=== PATIENT | female | born 1955 | race Caucasian/White ===

== ENCOUNTER → 2016-11-08 | Outpatient (CLI) | payer OTHER ==
[~2016-11-08] MED LIST: ANAPROX DS550 MG PO; ASPIR LOW81 MG PO; CLOPIDOGREL75 MG PO; GLYBURIDE5 MG PO; KLOR-CON 88 MEQ PO; LISINOPRIL10 MG PO; Meclizine25 MG PO
== END | disposition home or self-care (01) ==
LOC: US 13:30
DX: I73.9 Peripheral vascular disease, unspecified (principal)

== ENCOUNTER → 2017-04-18 | Outpatient (CLI) | payer OTHER | END | disposition home or self-care (01) | LOC: RAD 14:07 | DX: J90 Pleural effusion, not elsewhere classified (principal); I50.22 Chronic systolic (congestive) heart failure; I73.9 Peripheral vascular disease, unspecified; I42.9 Cardiomyopathy, unspecified ==

== ENCOUNTER → 2017-05-20 | Outpatient (CLI) | payer OTHER | LOC: WOUNDCARE 02:50 | DX: E11.621 Type 2 diabetes mellitus with foot ulcer (principal); L97.521 Non-pressure chronic ulcer of other part of left foot limited to breakdown of skin; I25.10 Atherosclerotic heart disease of native coronary artery without angina pectoris; I10 Essential (primary) hypertension; Z79.01 Long term (current) use of anticoagulants ==

== ENCOUNTER → 2018-05-03 | Outpatient (CLI) | payer OTHER | END | disposition home or self-care (01) | LOC: US 13:09 | DX: I73.9 Peripheral vascular disease, unspecified (principal) ==

== ENCOUNTER → 2018-05-12 | Outpatient (CLI) | payer OTHER | LOC: WOUNDCARE 02:55 | DX: E11.621 Type 2 diabetes mellitus with foot ulcer (principal); L97.521 Non-pressure chronic ulcer of other part of left foot limited to breakdown of skin; E11.51 Type 2 diabetes mellitus with diabetic peripheral angiopathy without gangrene; E11.40 Type 2 diabetes mellitus with diabetic neuropathy, unspecified; I10 Essential (primary) hypertension; I48.91 Unspecified atrial fibrillation; F17.210 Nicotine dependence, cigarettes, uncomplicated ==

== ENCOUNTER → 2018-05-19 | Outpatient (CLI) | payer OTHER | END | disposition home or self-care (01) | LOC: WOUNDCARE 04:25 | DX: E11.621 Type 2 diabetes mellitus with foot ulcer (principal); L97.521 Non-pressure chronic ulcer of other part of left foot limited to breakdown of skin; E11.51 Type 2 diabetes mellitus with diabetic peripheral angiopathy without gangrene; I10 Essential (primary) hypertension; E11.40 Type 2 diabetes mellitus with diabetic neuropathy, unspecified; I48.91 Unspecified atrial fibrillation; F17.210 Nicotine dependence, cigarettes, uncomplicated ==

== ENCOUNTER → 2019-03-07 | Outpatient (CLI) | payer OTHER | END | disposition home or self-care (01) | LOC: WOUNDCARE 10:13 → EDSTATUS 03-08 15:59 | DX: E11.621 Type 2 diabetes mellitus with foot ulcer (principal); L97.522 Non-pressure chronic ulcer of other part of left foot with fat layer exposed; E11.51 Type 2 diabetes mellitus with diabetic peripheral angiopathy without gangrene; E11.40 Type 2 diabetes mellitus with diabetic neuropathy, unspecified; I48.91 Unspecified atrial fibrillation; I10 Essential (primary) hypertension; F17.210 Nicotine dependence, cigarettes, uncomplicated; Z79.4 Long term (current) use of insulin; Z79.82 Long term (current) use of aspirin ==

== ENCOUNTER → 2019-03-14 | Outpatient (CLI) | payer MEDICARE | END | disposition home or self-care (01) | LOC: WOUNDCARE 01:20 | DX: E11.621 Type 2 diabetes mellitus with foot ulcer (principal); L97.522 Non-pressure chronic ulcer of other part of left foot with fat layer exposed; E11.51 Type 2 diabetes mellitus with diabetic peripheral angiopathy without gangrene; E11.40 Type 2 diabetes mellitus with diabetic neuropathy, unspecified; I10 Essential (primary) hypertension; I48.91 Unspecified atrial fibrillation; F17.210 Nicotine dependence, cigarettes, uncomplicated ==

== ENCOUNTER → 2019-03-30 | Outpatient (CLI) | payer MEDICARE | END | disposition home or self-care (01) | LOC: WOUNDCARE 10:22 | DX: E11.621 Type 2 diabetes mellitus with foot ulcer (principal); L97.522 Non-pressure chronic ulcer of other part of left foot with fat layer exposed; E11.51 Type 2 diabetes mellitus with diabetic peripheral angiopathy without gangrene; E11.59 Type 2 diabetes mellitus with other circulatory complications; I10 Essential (primary) hypertension; E11.40 Type 2 diabetes mellitus with diabetic neuropathy, unspecified; I48.91 Unspecified atrial fibrillation; F17.210 Nicotine dependence, cigarettes, uncomplicated ==

== ENCOUNTER 2020-09-26 15:58 | Inpatient (IN) | payer MEDICARE ==
[~2020-09-26] VITALS: Ht 172.7 cm; Wt 82.8 kg
[2020-09-26] VITALS (17 sets, daily range): BP systolic 70–113; BP diastolic 30–65
[2020-09-26 16:23] LABS: BASO % 0.2 % (0.0-1.0); EOS # 0.1 10*3/uL (0.0-0.4); EOS % 1.6 % (1.0-4.0); HEMATOCRIT 43.3 % (37.0-47.0); LYMPH # 0.7 10*3/uL (1.3-4.4); LYMPH % 17.4 % (27.0-41.0); MEAN CELL VOLUME 103.3 fl (81.0-99.0); MEAN CORPUSCULAR HGB 32.7 pg (27.0-31.0); MEAN CORPUSCULAR HGB CONC 31.6 g/dl (33.0-37.0); MEAN PLATELET VOLUME 10.5 fl (9.6-12.3); MONO # 0.1 10*3/uL (0.1-1.0); MONO % 1.4 % (3.0-9.0); NEUT # 3.3 10*3/uL (2.3-7.9); PLATELET COUNT AUTOMATED 148 10*3/uL (130-400); RED BLOOD COUNT 4.19 10*6/uL (4.10-5.10); RED CELL DISTRI WIDTH 15.9 % (0-14.5); WHITE BLOOD COUNT 4.3 10*3/uL (4.8-10.8)
[2020-09-26 16:41] LABS: ALBUMIN 2.6 gm/dl (3.1-4.5); CREATININE 4.68 mg/dL (0.55-1.02); POTASSIUM 4.7 mmol/L (3.5-5.1); TOTAL PROTEIN 6.7 gm/dL (6.4-8.2)
--- NOTE | 2020-09-26 16:42 | NUR ---
PT. RESTING IN BED, APPEARS TO BE IN NO DISTRESS AT THIS TIME. RR EASY AND NON-LABORED. CALL LIGHT WITHIN REACH. WILL CONTINUE TO MONITOR.
--- NOTE | 2020-09-26 17:33 | NUR ---
CLEANED PT. UP AND APPLIED NEW BRIEF AND PADS. PT. HAD LARGE BOWEL MOVEMENT, DIARRHEA.
--- NOTE | 2020-09-26 18:30 | NUR ---
INSERTED FMS INTO RECTUM TO MANAGE STOOL CONTENTS.
[2020-09-27] VITALS (7 sets, daily range): BP systolic 104–126; BP diastolic 40–80
--- NOTE | 2020-09-27 00:50 | NUR ---
A 65, admitted to 5E, under the services of FRED Tran DO with a diagnosis of HYPOTENSION. Chief complaint is LETHARGY AND WEAKNESS VOMITING. Patient arrived via stretcher from ER. Monitor applied. Initial assessment completed. Vital signs taken and recorded. FRED TRAN DO notified of admission to the unit. Orders received. See assessment for past medical history, medications and allergies. Patient and/or family oriented to unit. [facility] visitation policy reviewed. Clothing/patient valuable form completed. TADEO DE SOUZA
[2020-09-27] MEDS ORDERED: PHENERGAN25 M3 PO (01:11)
[2020-09-27] MEDS ORDERED: ELIQUIS5 M1 PO (01:11)
[2020-09-27] MEDS ORDERED: FUROSEMIDE80 MG PO (01:12)
[2020-09-27 03:58] LABS: HEMATOCRIT 36.9 % (37.0-47.0); MEAN CELL VOLUME 105.1 fl (81.0-99.0); MEAN CORPUSCULAR HGB 33.3 pg (27.0-31.0); MEAN CORPUSCULAR HGB CONC 31.7 g/dl (33.0-37.0); MEAN PLATELET VOLUME 10.6 fl (9.6-12.3); PLATELET COUNT AUTOMATED 128 10*3/uL (130-400); RED BLOOD COUNT 3.51 10*6/uL (4.10-5.10); WHITE BLOOD COUNT 16.2 10*3/uL (4.8-10.8)
[2020-09-27 04:13] LABS: CREATININE 4.54 mg/dL (0.55-1.02); POTASSIUM 4.5 mmol/L (3.5-5.1)
[2020-09-27 04:30] LABS: PLATELET SUFFICIENCY LOW (NORMAL); TOTAL CELLS COUNTED 100 #CELLS
[2020-09-27 04:31] LABS: BURR CELLS FEW
[2020-09-27 04:32] LABS: SCHISTOCYTES FEW
--- NOTE | 2020-09-27 06:43 | NUR ---
MESSAGE LEFT WITH [facility].
--- NOTE | 2020-09-27 06:48 | NUR ---
DR. RODRIGUEZ RETURNED CALL.
[2020-09-27 07:44] LABS: BILIRUBIN Negative (Negative); BLOOD 3+ (Negative); CLARITY Turbid (Clear); COLOR Dark Yellow (Yellow); GLUCOSE Negative (Negative); KETONE Trace (Negative); LEUKO ESTERASE 3+ (Negative); NITRITE Negative (Negative)
[2020-09-27 07:55] LABS: BACTERIA 4+; RBC TNTC rbc/hpf (0-2)
[2020-09-27 07:56] LABS: WBC TNTC wbc/hpf (0-5)
[2020-09-27 10:44] LABS: VITAMIN D, 25-HYDROXY 137.2 ng/mL (30-100)
--- NOTE | 2020-09-27 15:43 | NUR ---
THE PATIENT RETURNED FROM DIALYSIS. nO ACUTE DISTRESS WAS NOTED. pHYSICAL ASSESSMENT WAS COMPLTETED. BILATERAL LOWER EXTREMITIES WERE +2 PITTIMG EDEMA. THE PATIENT DENIED ANY LOCALIZED CALF PAIN BILATERALLY. TYLENOL WAS GIVEN FOR HEADACHE AND THE PATIENT VERBALLY REASSESS HER PAIN 3OR 4. SHE STATED THAT TYLENOL WAS EFFECTIVE. WILL CONTINUE TO SANTO CALL LIGHT IN REACH.
--- NOTE | 2020-09-27 18:19 | NUR ---
tHE PATIENT WAS COVERED WITH INSULIN OER SLIDING SCALE. [facility] PRINT[facility] [employer] SHANAE VERIFIED THE INSULIN THAT WAS ADMINISTERED
--- NOTE | 2020-09-27 18:32 | NUR ---
DR. WALTER WAS NOTIFIED AT 1615PM REGARDING THE PATIENTS VITALS SIGNS WHICH INCLUDED THE BP OF 90/44. NO ACTION WAS TAKEN. PATIENT DENIES DIZZINESS. WILL;CONTINUE TO MONITOR.
[2020-09-28] VITALS: BP 121/42
[2020-09-28 04:00] VITALS: BP 118/40
[2020-09-28 06:31] LABS: BASO % 0.2 % (0.0-1.0); EOS # 0.1 10*3/uL (0.0-0.4); EOS % 0.7 % (1.0-4.0); HEMATOCRIT 30.4 % (37.0-47.0); LYMPH # 0.7 10*3/uL (1.3-4.4); LYMPH % 6.4 % (27.0-41.0); MEAN CELL VOLUME 104.8 fl (81.0-99.0); MEAN CORPUSCULAR HGB 32.4 pg (27.0-31.0); MEAN CORPUSCULAR HGB CONC 30.9 g/dl (33.0-37.0); MEAN PLATELET VOLUME 9.9 fl (9.6-12.3); MONO # 0.5 10*3/uL (0.1-1.0); MONO % 4.8 % (3.0-9.0); NEUT # 9.9 10*3/uL (2.3-7.9); NEUT % 87.2 % (47.0-73.0); PLATELET COUNT AUTOMATED 129 10*3/uL (130-400); WHITE BLOOD COUNT 11.4 10*3/uL (4.8-10.8)
[2020-09-28 06:51] LABS: ALBUMIN 2.4 gm/dl (3.1-4.5); CREATININE 3.55 mg/dL (0.55-1.02); POTASSIUM 4.1 mmol/L (3.5-5.1); TOTAL PROTEIN 6.1 gm/dL (6.4-8.2)
[2020-09-28 08:00] VITALS: BP 119/50
--- NOTE | 2020-09-28 10:59 | NUR ---
Camera Person in to talk to patient. Patient states lives at HOME with AND DAUGHTER. There are 0 steps in the home. Physician: ELVIRA OTTO Pharmacy: [facility] Home health services: NONE Patient's level of ADLs: INDEPENDENT Patient has working utilities: ALL WORKING DME: HAS HOME OXYGEN THROUGH [employer]. WEARS 4 LITERS AT NIGHT Follow-up physician's appointment after d/c: [facility] OFFICE Does patient want to access PORTAL?: NO Discharge plan Discharge plan discussed with patient. She lives at home with and daughter and is independent with care/ambulation. She says she has been to snf in the past and has visiting nurses and therapy through home health before and none of them ever helped. she does not want to go to snf and is refusing home health at this time. Patient will discharge to home no needs. JE FUENTES
[2020-09-28 12:00] VITALS: BP 118/42
[2020-09-28 16:00] VITALS: BP 126/50
--- NOTE | 2020-09-28 18:34 | NUR ---
THE PATIENT COMPLAINS OF GENERAL ABDOMINAL PAIN. SHE DESCRIBED IT ACHING AND STATED THAT HER PAIN IS RELIEVES WHEN SHE SITS UP. DR. WALTER WAS NOTIFIED AND STATED THAT NO PHYSICIANS WERE IN HOUSE TO EVALUSTE HER. THE PATIENT WAS MEDICATED WITH TYLENOL AND NOTIFIED THAT THE DOCTOR WILL SEE HER TOMORROW. SAFETY MAINTAINED WILL CONTINUE TO MONITOR.
[2020-09-28 20:00] VITALS: BP 137/53
[2020-09-29] VITALS: BP 96/59
[2020-09-29 06:28] LABS: BASO % 0.2 % (0.0-1.0); EOS # 0.2 10*3/uL (0.0-0.4); EOS % 1.9 % (1.0-4.0); HEMATOCRIT 29.4 % (37.0-47.0); LYMPH # 0.9 10*3/uL (1.3-4.4); LYMPH % 10.2 % (27.0-41.0); MEAN CELL VOLUME 106.5 fl (81.0-99.0); MEAN CORPUSCULAR HGB 33.3 pg (27.0-31.0); MEAN CORPUSCULAR HGB CONC 31.3 g/dl (33.0-37.0); MEAN PLATELET VOLUME 10.4 fl (9.6-12.3); MONO # 0.5 10*3/uL (0.1-1.0); MONO % 5.9 % (3.0-9.0); NEUT # 6.9 10*3/uL (2.3-7.9); NEUT % 80.6 % (47.0-73.0); PLATELET COUNT AUTOMATED 129 10*3/uL (130-400); RED BLOOD COUNT 2.76 10*6/uL (4.10-5.10); RED CELL DISTRI WIDTH 15.9 % (0-14.5); WHITE BLOOD COUNT 8.6 10*3/uL (4.8-10.8)
[2020-09-29 06:44] LABS: ALBUMIN 2.4 gm/dl (3.1-4.5); CREATININE 4.44 mg/dL (0.55-1.02); POTASSIUM 4.1 mmol/L (3.5-5.1); TOTAL PROTEIN 6.4 gm/dL (6.4-8.2)
[2020-09-29 08:00] VITALS: BP 125/40
[2020-09-29 12:00] VITALS: BP 133/46
--- NOTE | 2020-09-29 12:15 | NUR ---
case management was asked to contact dialysis clinic to check if they could administer merepenem for 4 doses. called [facility], spoke to Taiwo, he stated the only antibiotics they are able to administer in dialysis is vancomycin, ancef, fortaz and gentamycin. notified hospitalist nurse director
[2020-09-29] MEDS ORDERED: MERREM IV500 MG IV (14:25)
--- NOTE | 2020-09-29 15:23 | NUR ---
case management received a script for outpatient iv antibiotics, patient is unable to receive at home due to medicare not paying for home iv medication. called center scheduling and set patient up for Tuesday10/01/20, twewxq20/29/20, tuesday all at 10 am in the hospital, patient notified of when to come into the hospital for her medication, no other needs at this time
[2020-09-29 16:00] VITALS: BP 123/52
--- NOTE | 2020-09-29 16:02 | NUR ---
Patient is discharged via wheelchair. she was taken downstairs by nurse bookkeeper assistant absil. The patient was receptive to discharge instructions. She took all of her belongings and understands that her antibiotics was called in to [facility]. at the time of discharge which was 1600, the patient left AOX3 AND NEGATIVE FOR ANY ACUTE DISTRESS. HEPLOCKS WERE REMOVED.
--- NOTE | 2020-09-29 18:52 | NUR ---
THE PATIENT WAS GIVEN IM ROCEPHIN BECAUSE SHE IS WAITING FOR A MIDLINE DR. ROTHMAN WAS NOTIFIED THAT WE COULDNT OBTAIN AN IV WHEN MERREM WAS INITIALLY ORDERED. NURSE GEORGE DEE WITNESSED ONE UNIT OF INSULIN.
[2020-09-29 20:00] VITALS: BP 130/56
[2020-09-30] VITALS: BP 135/56
[2020-09-30 03:53] VITALS: BP 131/60
[2020-09-30 06:52] LABS: BASO % 0.3 % (0.0-1.0); EOS # 0.2 10*3/uL (0.0-0.4); EOS % 2.9 % (1.0-4.0); HEMATOCRIT 31.7 % (37.0-47.0); LYMPH # 0.7 10*3/uL (1.3-4.4); LYMPH % 9.8 % (27.0-41.0); MEAN CELL VOLUME 107.5 fl (81.0-99.0); MEAN CORPUSCULAR HGB 32.9 pg (27.0-31.0); MEAN CORPUSCULAR HGB CONC 30.6 g/dl (33.0-37.0); MEAN PLATELET VOLUME 10.4 fl (9.6-12.3); MONO # 0.6 10*3/uL (0.1-1.0); NEUT # 5.3 10*3/uL (2.3-7.9); NEUT % 77.8 % (47.0-73.0); PLATELET COUNT AUTOMATED 144 10*3/uL (130-400); RED BLOOD COUNT 2.95 10*6/uL (4.10-5.10); RED CELL DISTRI WIDTH 15.6 % (0-14.5); WHITE BLOOD COUNT 6.9 10*3/uL (4.8-10.8)
[2020-09-30 07:02] LABS: ALBUMIN 2.7 gm/dl (3.1-4.5); CREATININE 4.85 mg/dL (0.55-1.02); POTASSIUM 4.1 mmol/L (3.5-5.1); TOTAL PROTEIN 6.7 gm/dL (6.4-8.2)
--- NOTE | 2020-09-30 07:23 | NUR ---
pt taken to dialysis via bed by NA.
[2020-09-30 08:00] VITALS: BP 114/71
[2020-09-30 12:00] VITALS: BP 148/70
--- NOTE | 2020-09-30 15:58 | NUR ---
CALLED AND NOTIFIED DR. AVINA, THAT PICCLINE IS IN PLACE.
[2020-09-30] MEDS ORDERED: ELIQUIS5 M1 PO (16:28)
--- NOTE | 2020-09-30 18:19 | NUR ---
Discharge instructions reviewed with patient/family. Patient receptive and verbalizes understanding. Follow-up care arranged. Written instructions given to patient/family. ESTRELLITA PARADA
== END 2020-09-30 18:19 | disposition home or self-care (01) | DRG 314 ==
LOC: ED 15:58 → EDHOLD 23:32 → 5E 23:32
PROVIDERS: Emergency Medicine; Hospitalist; Internal Medicine; Social Worker Clinical; ADMIT Internal Medicine; ATTEND Internal Medicine
PROC: 5A1D70Z Performance of Urinary Filtration, Intermittent, Less than 6 Hours Per Day (ICD-10-PCS; 2020-09-27)
PROC: 05HY33Z Insertion of Infusion Device into Upper Vein, Percutaneous Approach (ICD-10-PCS; principal; 2020-09-30)
PROC: 5A1D70Z Performance of Urinary Filtration, Intermittent, Less than 6 Hours Per Day (ICD-10-PCS; 2020-09-30)
DX: I95.9 Hypotension, unspecified (principal); E43 Unspecified severe protein-calorie malnutrition; N18.6 End stage renal disease; E87.1 Hypo-osmolality and hyponatremia; N39.0 Urinary tract infection, site not specified; I12.0 Hypertensive chronic kidney disease with stage 5 chronic kidney disease or end stage renal disease; E87.8 Other disorders of electrolyte and fluid balance, not elsewhere classified; R74.8 Abnormal levels of other serum enzymes; F17.210 Nicotine dependence, cigarettes, uncomplicated; I25.10 Atherosclerotic heart disease of native coronary artery without angina pectoris; E78.5 Hyperlipidemia, unspecified; R31.9 Hematuria, unspecified; R31.29 Other microscopic hematuria; E80.6 Other disorders of bilirubin metabolism; E67.3 Hypervitaminosis D; B96.1 Klebsiella pneumoniae [K. pneumoniae] as the cause of diseases classified elsewhere; E53.8 Deficiency of other specified B group vitamins; R19.7 Diarrhea, unspecified; D75.89 Other specified diseases of blood and blood-forming organs; E53.9 Vitamin B deficiency, unspecified; E11.65 Type 2 diabetes mellitus with hyperglycemia; E11.22 Type 2 diabetes mellitus with diabetic chronic kidney disease; Z79.4 Long term (current) use of insulin; Z71.6 Tobacco abuse counseling; Z68.28 Body mass index [BMI] 28.0-28.9, adult; Z82.49 Family history of ischemic heart disease and other diseases of the circulatory system; Z83.3 Family history of diabetes mellitus; Z88.2 Allergy status to sulfonamides; Z88.5 Allergy status to narcotic agent; Z79.899 Other long term (current) drug therapy; Z99.2 Dependence on renal dialysis

== ENCOUNTER 2021-01-30 19:07 | Inpatient (IN) | payer OTHER ==
[~2021-01-30] VITALS: Ht 172.7 cm; Wt 75.1 kg
[~2021-01-30 19:07] MED LIST changes: +ELIQUIS5 M1 PO; +FUROSEMIDE80 MG PO; -LISINOPRIL10 MG PO; +LISINOPRIL40 MG PO; +MERREM IV500 MG IV; +PHENERGAN25 M3 PO
[2021-01-30 19:08] VITALS: BP 138/51
[2021-01-30 22:50] VITALS: BP 137/64
[2021-01-30 23:05] LABS: BASO % 0.3 % (0.0-1.0); EOS % 0.4 % (1.0-4.0); HEMATOCRIT 33.4 % (37.0-47.0); LYMPH # 0.5 10*3/uL (1.3-4.4); MEAN CELL VOLUME 107.1 fl (81.0-99.0); MEAN CORPUSCULAR HGB CONC 30.8 g/dl (33.0-37.0); MEAN PLATELET VOLUME 10.3 fl (9.6-12.3); MONO # 0.6 10*3/uL (0.1-1.0); MONO % 7.3 % (3.0-9.0); NEUT # 6.6 10*3/uL (2.3-7.9); NEUT % 85.6 % (47.0-73.0); PLATELET COUNT AUTOMATED 107 10*3/uL (130-400); RED BLOOD COUNT 3.12 10*6/uL (4.10-5.10); RED CELL DISTRI WIDTH 15.2 % (0-14.5); WHITE BLOOD COUNT 7.7 10*3/uL (4.8-10.8)
[2021-01-30 23:22] LABS: ALBUMIN 2.5 gm/dl (3.1-4.5); CREATININE 3.51 mg/dL (0.55-1.02); POTASSIUM 3.7 mmol/L (3.5-5.1); TOTAL PROTEIN 6.8 gm/dL (6.4-8.2)
[2021-01-30] MEDS ORDERED: BASAG SOL SC (23:28)
[2021-01-30] MEDS ORDERED: CALCIUM ACETAT667 MG PO (23:29)
[2021-01-30] MEDS ORDERED: NEPHRO-VITE TA0.8 MG PO (23:30)
[2021-01-30] MEDS ORDERED: AMIODARONE HYD200 MG PO (23:31)
[2021-01-30] MEDS ORDERED: PRAVASTATIN SOD20 MG PO (23:31)
[2021-01-30] MEDS ORDERED: CARVEDILOL25 MG PO (23:32)
[2021-01-30] MEDS ORDERED: Synthroid,Levo25 MCG PO (23:33)
[2021-01-31] VITALS: BP 141/59
[2021-01-31 06:09] LABS: POTASSIUM 3.8 mmol/L (3.5-5.1)
[2021-01-31 06:13] LABS: ALBUMIN 2.3 gm/dl (3.1-4.5); CREATININE 3.61 mg/dL (0.55-1.02); TOTAL PROTEIN 6.4 gm/dL (6.4-8.2)
[2021-01-31 06:18] LABS: BASO % 0.5 % (0.0-1.0); EOS % 0.5 % (1.0-4.0); LYMPH # 0.7 10*3/uL (1.3-4.4); LYMPH % 11.2 % (27.0-41.0); MEAN CORPUSCULAR HGB 32.5 pg (27.0-31.0); MEAN CORPUSCULAR HGB CONC 30.6 g/dl (33.0-37.0); MEAN PLATELET VOLUME 10.8 fl (9.6-12.3); MONO # 0.5 10*3/uL (0.1-1.0); MONO % 8.5 % (3.0-9.0); NEUT # 4.9 10*3/uL (2.3-7.9); NEUT % 78.8 % (47.0-73.0); PLATELET COUNT AUTOMATED 120 10*3/uL (130-400); RED BLOOD COUNT 3.02 10*6/uL (4.10-5.10); RED CELL DISTRI WIDTH 15.3 % (0-14.5); WHITE BLOOD COUNT 6.3 10*3/uL (4.8-10.8)
[2021-01-31 08:00] VITALS: BP 140/61
[2021-01-31 12:00] VITALS: BP 129/70
[2021-01-31 16:00] VITALS: BP 148/73
[2021-01-31 20:00] VITALS: BP 138/54
[2021-02-01] VITALS (10 sets, daily range): BP systolic 127–142; BP diastolic 52–63
[2021-02-01 06:36] LABS: BASO % 0.5 % (0.0-1.0); EOS # 0.1 10*3/uL (0.0-0.4); EOS % 0.9 % (1.0-4.0); HEMATOCRIT 32.5 % (37.0-47.0); LYMPH # 0.8 10*3/uL (1.3-4.4); LYMPH % 13.1 % (27.0-41.0); MEAN CELL VOLUME 105.5 fl (81.0-99.0); MEAN CORPUSCULAR HGB 33.1 pg (27.0-31.0); MEAN CORPUSCULAR HGB CONC 31.4 g/dl (33.0-37.0); MEAN PLATELET VOLUME 10.5 fl (9.6-12.3); MONO # 0.6 10*3/uL (0.1-1.0); MONO % 10.9 % (3.0-9.0); NEUT # 4.3 10*3/uL (2.3-7.9); NEUT % 74.1 % (47.0-73.0); PLATELET COUNT AUTOMATED 123 10*3/uL (130-400); RED BLOOD COUNT 3.08 10*6/uL (4.10-5.10); RED CELL DISTRI WIDTH 15.3 % (0-14.5); WHITE BLOOD COUNT 5.8 10*3/uL (4.8-10.8)
[2021-02-01 06:44] LABS: ALBUMIN 2.2 gm/dl (3.1-4.5); CREATININE 2.7 mg/dL (0.55-1.02); POTASSIUM 3.5 mmol/L (3.5-5.1); TOTAL PROTEIN 6.4 gm/dL (6.4-8.2)
[2021-02-02] VITALS: BP 122/47
[2021-02-02 07:03] LABS: BASO % 0.5 % (0.0-1.0); EOS # 0.1 10*3/uL (0.0-0.4); EOS % 1.2 % (1.0-4.0); HEMATOCRIT 32.3 % (37.0-47.0); LYMPH # 0.6 10*3/uL (1.3-4.4); LYMPH % 9.1 % (27.0-41.0); MEAN CELL VOLUME 105.9 fl (81.0-99.0); MEAN CORPUSCULAR HGB 32.8 pg (27.0-31.0); MEAN PLATELET VOLUME 10.5 fl (9.6-12.3); MONO # 0.6 10*3/uL (0.1-1.0); MONO % 9.1 % (3.0-9.0); NEUT # 5.1 10*3/uL (2.3-7.9); NEUT % 79.3 % (47.0-73.0); PLATELET COUNT AUTOMATED 134 10*3/uL (130-400); RED BLOOD COUNT 3.05 10*6/uL (4.10-5.10); RED CELL DISTRI WIDTH 15.4 % (0-14.5); WHITE BLOOD COUNT 6.5 10*3/uL (4.8-10.8)
[2021-02-02 07:14] LABS: ALBUMIN 2.1 gm/dl (3.1-4.5); CREATININE 3.68 mg/dL (0.55-1.02); POTASSIUM 3.4 mmol/L (3.5-5.1)
[2021-02-02 07:16] LABS: TOTAL PROTEIN 6.2 gm/dL (6.4-8.2)
[2021-02-02 08:00] VITALS: BP 130/60
[2021-02-02 12:00] VITALS: BP 129/53
[2021-02-02 16:00] VITALS: BP 131/51
[2021-02-02 20:00] VITALS: BP 126/54
[2021-02-03] VITALS: BP 121/61
[2021-02-03 12:00] VITALS: BP 136/50; BP 140/63
[2021-02-03 16:00] VITALS: BP 132/48
[2021-02-03 20:00] VITALS: BP 136/51
[2021-02-04] VITALS: BP 118/58
[2021-02-04 08:00] VITALS: BP 118/54
[2021-02-04 12:00] VITALS: BP 131/53
[2021-02-04 16:00] VITALS: BP 118/59
[2021-02-04 20:00] VITALS: BP 125/50
[2021-02-05] VITALS: BP 122/66
[2021-02-05 08:00] VITALS: BP 133/66
[2021-02-05 12:00] VITALS: BP 125/43
[2021-02-05] MEDS ORDERED: VITAMIN D350 MC2 PO (15:31)
[2021-02-05] MEDS ORDERED: Percocet 325 MG1 TAB PO (15:33)
[2021-02-05 16:00] VITALS: BP 128/48
== END 2021-02-05 18:25 | DRG 492 ==
LOC: ED 19:07 → 5E 21:35 → EDHOLD 21:35 → 5E 21:45 → EDHOLD 22:36 → 5E 22:37
PROVIDERS: Internal Medicine; Student in an Organized Health Care Education/Training Program; ADMIT Internal Medicine; ATTEND Internal Medicine
PROC: 2W3LX1Z Immobilization of Right Lower Extremity using Splint (ICD-10-PCS; 2021-01-30)
PROC: 5A1D70Z Performance of Urinary Filtration, Intermittent, Less than 6 Hours Per Day (ICD-10-PCS; 2021-01-31)
PROC: 0QSJ04Z Reposition Right Fibula with Internal Fixation Device, Open Approach (ICD-10-PCS; principal; 2021-02-01)
PROC: 0QSG04Z Reposition Right Tibia with Internal Fixation Device, Open Approach (ICD-10-PCS; 2021-02-01)
PROC: 3E0T3BZ Introduction of Anesthetic Agent into Peripheral Nerves and Plexi, Percutaneous Approach (ICD-10-PCS; 2021-02-01)
PROC: 0HBRXZZ Excision of Toe Nail, External Approach (ICD-10-PCS; 2021-02-02)
PROC: 0HBRXZZ Excision of Toe Nail, External Approach (ICD-10-PCS; 2021-02-02)
PROC: 0HBRXZZ Excision of Toe Nail, External Approach (ICD-10-PCS; 2021-02-02)
PROC: 0HBRXZZ Excision of Toe Nail, External Approach (ICD-10-PCS; 2021-02-02)
PROC: 0HBRXZZ Excision of Toe Nail, External Approach (ICD-10-PCS; 2021-02-02)
PROC: 5A1D70Z Performance of Urinary Filtration, Intermittent, Less than 6 Hours Per Day (ICD-10-PCS; 2021-02-03)
PROC: 5A1D70Z Performance of Urinary Filtration, Intermittent, Less than 6 Hours Per Day (ICD-10-PCS; 2021-02-05)
DX: S82.851A Displaced trimalleolar fracture of right lower leg, initial encounter for closed fracture (principal); N18.6 End stage renal disease; I50.20 Unspecified systolic (congestive) heart failure; E44.0 Moderate protein-calorie malnutrition; M80.00XA Age-related osteoporosis with current pathological fracture, unspecified site, initial encounter for fracture; I13.2 Hypertensive heart and chronic kidney disease with heart failure and with stage 5 chronic kidney disease, or end stage renal disease; T81.33XA Disruption of traumatic injury wound repair, initial encounter; Z99.2 Dependence on renal dialysis; E11.65 Type 2 diabetes mellitus with hyperglycemia; D53.9 Nutritional anemia, unspecified; F17.210 Nicotine dependence, cigarettes, uncomplicated; E03.9 Hypothyroidism, unspecified; Z20.822 Contact with and (suspected) exposure to COVID-19; E11.51 Type 2 diabetes mellitus with diabetic peripheral angiopathy without gangrene; E78.2 Mixed hyperlipidemia; R26.2 Difficulty in walking, not elsewhere classified; W19.XXXA Unspecified fall, initial encounter; Y93.89 Activity, other specified; Y92.89 Other specified places as the place of occurrence of the external cause; Z79.4 Long term (current) use of insulin; Y99.8 Other external cause status; Z88.2 Allergy status to sulfonamides; Z88.5 Allergy status to narcotic agent; Z98.891 History of uterine scar from previous surgery; Z82.49 Family history of ischemic heart disease and other diseases of the circulatory system; Z83.3 Family history of diabetes mellitus; Z95.810 Presence of automatic (implantable) cardiac defibrillator; Z79.899 Other long term (current) drug therapy; B35.1 Tinea unguium; Z68.27 Body mass index [BMI] 27.0-27.9, adult

== ENCOUNTER → 2021-02-25 | Outpatient (CLI) | payer OTHER ==
[~2021-02-25] MED LIST changes: +AMIODARONE HYD200 MG PO; +BASAG SOL SC; +CALCIUM ACETAT667 MG PO; +CARVEDILOL25 MG PO; +MIRTAZAPINE15 M2 PO; +NEPHRO-VITE TA0.8 MG PO; +PRAVASTATIN SOD20 MG PO; +Percocet 325 MG1 TAB PO; +Synthroid,Levo25 MCG PO; +VITAMIN D350 MC2 PO
== END | disposition home or self-care (01) ==
LOC: ORTHO 00:42
PROVIDERS: ATTEND Orthopaedic Surgery
DX: S82.831D Other fracture of upper and lower end of right fibula, subsequent encounter for closed fracture with routine healing (principal); S82.51XD Displaced fracture of medial malleolus of right tibia, subsequent encounter for closed fracture with routine healing; X58.XXXD Exposure to other specified factors, subsequent encounter

== ENCOUNTER 2021-03-01 13:13 | Inpatient (IN) | payer OTHER ==
[~2021-03-01] VITALS: Ht 175.2 cm; Wt 70.0 kg
[~2021-03-01 13:13] MED LIST changes: -MIRTAZAPINE15 M2 PO
[2021-03-01 13:14] VITALS: BP 132/49
[2021-03-01 14:15] LABS: BASO % 0.4 % (0.0-1.0); EOS # 0.2 10*3/uL (0.0-0.4); EOS % 2.5 % (1.0-4.0); LYMPH # 0.6 10*3/uL (1.3-4.4); LYMPH % 7.1 % (27.0-41.0); MEAN CELL VOLUME 105.4 fl (81.0-99.0); MEAN CORPUSCULAR HGB 32.2 pg (27.0-31.0); MEAN CORPUSCULAR HGB CONC 30.6 g/dl (33.0-37.0); MEAN PLATELET VOLUME 9.6 fl (9.6-12.3); MONO # 0.6 10*3/uL (0.1-1.0); MONO % 7.5 % (3.0-9.0); NEUT # 6.8 10*3/uL (2.3-7.9); NEUT % 81.5 % (47.0-73.0); PLATELET COUNT AUTOMATED 176 10*3/uL (130-400); RED BLOOD COUNT 3.32 10*6/uL (4.10-5.10); RED CELL DISTRI WIDTH 15.9 % (0-14.5); WHITE BLOOD COUNT 8.3 10*3/uL (4.8-10.8)
[2021-03-01 14:26] LABS: ACT PARTIAL THROMBO TIME 36.7 SECONDS (20.0-32.1); INTERNATIONAL NORM RATIO 1.5 (2.0-3.5)
[2021-03-01 14:31] LABS: ALBUMIN 1.9 gm/dl (3.1-4.5); CREATININE 3.33 mg/dL (0.55-1.02); POTASSIUM 3.8 mmol/L (3.5-5.1); TOTAL PROTEIN 5.9 gm/dL (6.4-8.2)
[2021-03-01 17:24] VITALS: BP 142/76
[2021-03-01] MEDS ORDERED: MIRTAZAPINE15 M2 PO (17:56)
[2021-03-01 20:00] VITALS: BP 138/42
[2021-03-02] VITALS: BP 129/49
[2021-03-02 06:25] LABS: BASO % 0.4 % (0.0-1.0); EOS # 0.2 10*3/uL (0.0-0.4); EOS % 2.5 % (1.0-4.0); HEMATOCRIT 33.6 % (37.0-47.0); LYMPH # 0.7 10*3/uL (1.3-4.4); LYMPH % 8.2 % (27.0-41.0); MEAN CORPUSCULAR HGB 31.6 pg (27.0-31.0); MEAN CORPUSCULAR HGB CONC 30.4 g/dl (33.0-37.0); MEAN PLATELET VOLUME 9.8 fl (9.6-12.3); MONO # 0.6 10*3/uL (0.1-1.0); MONO % 7.7 % (3.0-9.0); NEUT # 6.5 10*3/uL (2.3-7.9); NEUT % 80.5 % (47.0-73.0); PLATELET COUNT AUTOMATED 187 10*3/uL (130-400); RED BLOOD COUNT 3.23 10*6/uL (4.10-5.10); RED CELL DISTRI WIDTH 15.8 % (0-14.5)
[2021-03-02 06:41] LABS: ACT PARTIAL THROMBO TIME 35.4 SECONDS (20.0-32.1); INTERNATIONAL NORM RATIO 1.3 (2.0-3.5)
[2021-03-02 06:46] LABS: ALBUMIN 1.8 gm/dl (3.1-4.5); CREATININE 3.67 mg/dL (0.55-1.02); POTASSIUM 3.6 mmol/L (3.5-5.1); TOTAL PROTEIN 5.8 gm/dL (6.4-8.2)
[2021-03-02 06:50] LABS: THYROID STIM HORMONE (HS) 5.75 uIU/ml (0.358-4.75)
[2021-03-02 07:51] VITALS: BP 142/48
[2021-03-02 11:56] VITALS: BP 138/52
== END 2021-03-02 17:31 | disposition home health service (06) | DRG 917 ==
LOC: ED 13:13 → 4E 14:43 → EDHOLD 14:43 → 4E 16:56
PROVIDERS: Emergency Medicine; Family Medicine; ADMIT Emergency Medicine; ATTEND Emergency Medicine
DX: T45.511A Poisoning by anticoagulants, accidental (unintentional), initial encounter (principal); N18.6 End stage renal disease; K92.2 Gastrointestinal hemorrhage, unspecified; E44.0 Moderate protein-calorie malnutrition; I13.2 Hypertensive heart and chronic kidney disease with heart failure and with stage 5 chronic kidney disease, or end stage renal disease; I50.22 Chronic systolic (congestive) heart failure; I25.10 Atherosclerotic heart disease of native coronary artery without angina pectoris; I48.91 Unspecified atrial fibrillation; D53.9 Nutritional anemia, unspecified; E83.41 Hypermagnesemia; E78.5 Hyperlipidemia, unspecified; Y92.89 Other specified places as the place of occurrence of the external cause; E11.22 Type 2 diabetes mellitus with diabetic chronic kidney disease; Z99.2 Dependence on renal dialysis; Z79.4 Long term (current) use of insulin; Z68.22 Body mass index [BMI] 22.0-22.9, adult; S82.851S Displaced trimalleolar fracture of right lower leg, sequela; Z88.2 Allergy status to sulfonamides; Z88.5 Allergy status to narcotic agent; Z83.3 Family history of diabetes mellitus; Z82.49 Family history of ischemic heart disease and other diseases of the circulatory system; Z79.1 Long term (current) use of non-steroidal anti-inflammatories (NSAID); Z79.899 Other long term (current) drug therapy

== ENCOUNTER 2021-03-18 17:51 | Inpatient (IN) | payer OTHER ==
[~2021-03-18] VITALS: Ht 175.2 cm; Wt 71.2 kg
[~2021-03-18 17:51] MED LIST changes: +MIRTAZAPINE15 M2 PO
[2021-03-18 17:55] VITALS: BP 111/51
[2021-03-18 19:18] LABS: MEAN CORPUSCULAR HGB 31.1 pg (27.0-31.0)
[2021-03-18 19:34] LABS: ALBUMIN 0.8 gm/dl (3.1-4.5); ALKALINE PHOSPHATASE 293 U/L (45-117); BUN 16 mg/dl (7-24); CREATININE 1.38 mg/dL (0.55-1.02); SGOT/AST 357 IU/L (3-35); SGPT/ALT 81 U/L (12-78); SODIUM 152 mmol/L (136-145); TOTAL PROTEIN 2.7 gm/dL (6.4-8.2)
[2021-03-18 19:56] LABS: CHLORIDE 127 mmol/L (98-107); LIPASE 1950 U/L (73-393)
[2021-03-18 19:58] LABS: POTASSIUM 1.6 mmol/L (3.5-5.1)
[2021-03-18 20:22] LABS: HEMATOCRIT 23.2 % (37.0-47.0); PLATELET COUNT AUTOMATED 97 10*3/uL (130-400); RED BLOOD COUNT 2.32 10*6/uL (4.10-5.10); RED CELL DISTRI WIDTH 16.9 % (0-14.5); WHITE BLOOD COUNT 2.5 10*3/uL (4.8-10.8)
[2021-03-18 20:28] LABS: TROPONIN I 0.036 ng/ml (<0.045)
[2021-03-18 20:31] LABS: ALBUMIN 1.1 gm/dl (3.1-4.5); ALKALINE PHOSPHATASE 349 U/L (45-117); BUN 20 mg/dl (7-24); CHLORIDE 121 mmol/L (98-107); CREATININE 1.71 mg/dL (0.55-1.02); LIPASE 2256 U/L (73-393); SGOT/AST 418 IU/L (3-35); SGPT/ALT 100 U/L (12-78); SODIUM 149 mmol/L (136-145); TOTAL PROTEIN 3.4 gm/dL (6.4-8.2)
[2021-03-18 20:34] LABS: POTASSIUM 1.8 mmol/L (3.5-5.1)
[2021-03-18 20:42] LABS: ACT PARTIAL THROMBO TIME 101.8 SECONDS (20.0-32.1); INTERNATIONAL NORM RATIO 9.3 (2.0-3.5)
[2021-03-18 20:51] LABS: TOTAL CELLS COUNTED 100 #CELLS
[2021-03-18 20:52] LABS: BURR CELLS FEW; MICROCYTOSIS SLIGHT; PLATELET SUFFICIENCY LOW (NORMAL)
[2021-03-18 23:17] LABS: HEMATOCRIT 25.1 % (37.0-47.0); MEAN CELL VOLUME 99.6 fl (81.0-99.0); MEAN CORPUSCULAR HGB CONC 31.1 g/dl (33.0-37.0); PLATELET COUNT AUTOMATED 90 10*3/uL (130-400); RED BLOOD COUNT 2.52 10*6/uL (4.10-5.10); WHITE BLOOD COUNT 6.3 10*3/uL (4.8-10.8)
[2021-03-18 23:33] LABS: ALBUMIN 1.2 gm/dl (3.1-4.5); CREATININE 2.24 mg/dL (0.55-1.02); TOTAL PROTEIN 3.9 gm/dL (6.4-8.2)
[2021-03-18 23:38] LABS: POTASSIUM 2.2 mmol/L (3.5-5.1)
[2021-03-18 23:53] VITALS: BP 91/38
[2021-03-19] VITALS (27 sets, daily range): BP systolic 70–112; BP diastolic 24–56
[2021-03-19] LABS: PLATELET SUFFICIENCY LOW (NORMAL); TOTAL CELLS COUNTED 100 #CELLS
[2021-03-19 01:58] LABS: MEAN CELL VOLUME 99.7 fl (81.0-99.0); MEAN CORPUSCULAR HGB 31.2 pg (27.0-31.0); MEAN CORPUSCULAR HGB CONC 31.3 g/dl (33.0-37.0); MEAN PLATELET VOLUME 10.9 fl (9.6-12.3); PLATELET COUNT AUTOMATED 114 10*3/uL (130-400); RED BLOOD COUNT 3.01 10*6/uL (4.10-5.10); RED CELL DISTRI WIDTH 17.1 % (0-14.5); WHITE BLOOD COUNT 9.6 10*3/uL (4.8-10.8)
[2021-03-19 02:38] LABS: PLATELET SUFFICIENCY LOW (NORMAL); TOTAL CELLS COUNTED 100 #CELLS
[2021-03-19 03:30] LABS: ALBUMIN 2.1 gm/dl (3.1-4.5); CREATININE 3.48 mg/dL (0.55-1.02); TOTAL PROTEIN 5.8 gm/dL (6.4-8.2)
[2021-03-19 03:31] LABS: POTASSIUM 3.3 mmol/L (3.5-5.1)
[2021-03-19 06:21] LABS: HEMATOCRIT 30.2 % (37.0-47.0); MEAN CELL VOLUME 99.7 fl (81.0-99.0); MEAN CORPUSCULAR HGB 30.7 pg (27.0-31.0); MEAN CORPUSCULAR HGB CONC 30.8 g/dl (33.0-37.0); PLATELET COUNT AUTOMATED 111 10*3/uL (130-400); RED BLOOD COUNT 3.03 10*6/uL (4.10-5.10); RED CELL DISTRI WIDTH 17.1 % (0-14.5); WHITE BLOOD COUNT 10.2 10*3/uL (4.8-10.8)
[2021-03-19 06:23] LABS: ALBUMIN 2.6 gm/dl (3.1-4.5)
[2021-03-19 06:26] LABS: CREATININE 3.53 mg/dL (0.55-1.02); TOTAL PROTEIN 6.3 gm/dL (6.4-8.2)
[2021-03-19 06:39] LABS: ACT PARTIAL THROMBO TIME 41.5 SECONDS (20.0-32.1); INTERNATIONAL NORM RATIO 2.6 (2.0-3.5); POTASSIUM 4.3 mmol/L (3.5-5.1)
[2021-03-19 08:06] LABS: TOTAL CELLS COUNTED 100 #CELLS
[2021-03-19 08:07] LABS: BURR CELLS FEW; OVALOCYTES FEW; PLATELET SUFFICIENCY LOW (NORMAL)
[2021-03-19 08:09] LABS: VACUOLATION OF NEUTROPHILS SLIGHT
[2021-03-19] MEDS ORDERED: Phenergan25 MG PO (12:08)
== END 2021-03-19 13:00 | disposition short-term general hospital (02) | DRG 871 ==
LOC: ED 17:51 → EDHOLD 21:36
PROVIDERS: Hospitalist; Physician Assistant; ADMIT Internal Medicine; ATTEND Internal Medicine
PROC: 02HV33Z Insertion of Infusion Device into Superior Vena Cava, Percutaneous Approach (ICD-10-PCS; 2021-03-18)
PROC: B548ZZA Ultrasonography of Superior Vena Cava, Guidance (ICD-10-PCS; 2021-03-18)
PROC: 30233N1 Transfusion of Nonautologous Red Blood Cells into Peripheral Vein, Percutaneous Approach (ICD-10-PCS; principal; 2021-03-19)
PROC: 30233K1 Transfusion of Nonautologous Frozen Plasma into Peripheral Vein, Percutaneous Approach (ICD-10-PCS; 2021-03-19)
DX: A41.9 Sepsis, unspecified organism (principal); K85.90 Acute pancreatitis without necrosis or infection, unspecified; E43 Unspecified severe protein-calorie malnutrition; N18.6 End stage renal disease; R65.21 Severe sepsis with septic shock; K92.2 Gastrointestinal hemorrhage, unspecified; D61.818 Other pancytopenia; I13.2 Hypertensive heart and chronic kidney disease with heart failure and with stage 5 chronic kidney disease, or end stage renal disease; I50.22 Chronic systolic (congestive) heart failure; D68.9 Coagulation defect, unspecified; K80.10 Calculus of gallbladder with chronic cholecystitis without obstruction; E11.22 Type 2 diabetes mellitus with diabetic chronic kidney disease; R74.01 Elevation of levels of liver transaminase levels; E87.6 Hypokalemia; E78.5 Hyperlipidemia, unspecified; I25.10 Atherosclerotic heart disease of native coronary artery without angina pectoris; E03.9 Hypothyroidism, unspecified; E11.51 Type 2 diabetes mellitus with diabetic peripheral angiopathy without gangrene; M81.0 Age-related osteoporosis without current pathological fracture; K82.8 Other specified diseases of gallbladder; E11.649 Type 2 diabetes mellitus with hypoglycemia without coma; E83.51 Hypocalcemia; E78.2 Mixed hyperlipidemia; D64.9 Anemia, unspecified; F17.210 Nicotine dependence, cigarettes, uncomplicated; I48.91 Unspecified atrial fibrillation; Z82.49 Family history of ischemic heart disease and other diseases of the circulatory system; Z99.2 Dependence on renal dialysis; Z79.4 Long term (current) use of insulin; Z88.6 Allergy status to analgesic agent; Z88.2 Allergy status to sulfonamides; Z98.891 History of uterine scar from previous surgery; Z83.3 Family history of diabetes mellitus; Z68.22 Body mass index [BMI] 22.0-22.9, adult